=== PATIENT | male | born 1965 | race Caucasian/White ===

== ENCOUNTER → 2019-02-21 | Outpatient (CLI) | payer OTHER ==
--- NOTE | 2019-02-21 09:14 | XR ---
EXAMINATION TYPE: XR finger LT DATE OF EXAM: 02/21/2019 COMPARISON: NONE HISTORY: Smashing injury with pain. TECHNIQUE: 3 views of left fifth finger are acquired. FINDINGS: No acute fracture or dislocation is seen. There is over growing osteophyte along dorsal sandhya face at the base of the distal phalanx. There is slight cortical disruption along the ulnar aspect. . Mild soft tissue prominence at this level is seen. Joint spaces are maintained. IMPRESSION: Findings suggest healed fracture deformity at base of fifth distal phalanx ulnar dorsal a spect.
== END | disposition home or self-care (01) ==
LOC: RADXRMAIN 08:36
PROVIDERS: ATTEND Family Medicine
DX: M79.645 Pain in left finger(s) (principal)

== ENCOUNTER → 2019-09-13 | Outpatient (CLI) | payer OTHER ==
--- NOTE | 2019-09-13 09:28 | US ---
EXAMINATION TYPE: US duplex aorta DATE OF EXAM: 09/13/2019 COMPARISON: NONE CLINICAL HISTORY: 54-year-old male I72.3 ANEURYSM OF ILIAC ARTERY. TECHNIQUE: Multiple sonographic images of the abdominal aorta and iliac arteries are obtained. FINDINGS: EXAM MEASUREMENTS: Abdominal Aorta: Proximal: 2.5cm Mid: 2.0cm Distal: 1.8cm Bifurcation: Right: 2.3 x 2.4cm Left: 1.0cm IMPRESSION: 1. Borderline ectatic upper abdominal aorta 2.5 cm. Otherwise, no evidence for AAA. 2. 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 Left common iliac artery is normal caliber a t 1.0 cm.
== END | disposition home or self-care (01) ==
LOC: RADUSWWP 08:43
PROVIDERS: ATTEND Family Medicine
DX: I72.3 Aneurysm of iliac artery (principal)
CPT/HCPCS: 93979

== ENCOUNTER → 2021-01-21 | Outpatient (CLI) | payer OTHER ==
--- NOTE | 2021-01-21 08:41 | CT ---
EXAMINATION TYPE: CT soft tissue neck w con DATE OF EXAM: 01/21/2021 COMPARISON: None HISTORY: bilateral submandibular masses more on Lt than Rt CT DLP: 703.5 mGycm CONTRAST: CT scan of the neck is performed with IV Contrast, patient injected with 100 mL of Isovue 300. Contrast enhanced CT of the neck was performed from the skull base through the lung apices. AIRWAY: The supraglottic, glottic, and subglottic portions of the airway appear patent and free of mass. SALIVARY GLANDS: The submandibular and parotid glands are free of mass or inflammatory process. Ther e is a calcification adjacent to the left submandibular gland measuring 8 mm. Smaller 7 mm lymph node adjacent to the left submandibular gland is within normal limits. THYROID GLAND: No nodules or masses seen. LYMPH NODES: No adenopathy seen greater than 1cm. LUNG APICES: No nodule or mass is seen. OTHER: Vascular structures are patent. No significant degenerative change of the cervical spine. N o abscess seen. IMPRESSION: 1. No distinct mass identified at this time. 2.There is a calcification adjacent to the left submandibular gland measuring 8 mm. No evidence for i nflammatory process this time.
== END | disposition home or self-care (01) ==
LOC: RADCTMAIN 07:28
PROVIDERS: ATTEND Family Medicine
DX: R22.1 Localized swelling, mass and lump, neck (principal)
CPT/HCPCS: 70491; Q9967

== ENCOUNTER → 2021-09-09 | Outpatient (CLI) | payer OTHER ==
--- NOTE | 2021-09-09 10:53 | XR ---
EXAMINATION TYPE: XR foot limited RT DATE OF EXAM: 09/09/2021 CLINICAL HISTORY: Pain. TECHNIQUE: Frontal and lateral images of the right foot are obtained. COMPARISON: None FINDINGS: There is no acute fracture/dislocation evident in the right foot. The Watson's toe is pres ent. Small superior calcaneal spur. Small to moderate size inferior calcaneal spur. Joint spaces are maintained. Mild focal soft tissue swelling lateral to the fifth metatarsophalangeal joint. IMPRESSION: As above.
== END | disposition home or self-care (01) ==
LOC: RADXRMAIN 10:03
PROVIDERS: ATTEND Family Medicine
DX: M77.31 Calcaneal spur, right foot (principal)

== ENCOUNTER → 2024-06-08 | Outpatient (CLI) | payer OTHER ==
--- NOTE | 2024-07-10 13:56 | MR ---
Site ID synapse default Patient Juan Corona Jr ID [id number] 1965 Age/Gender: 59Y, M Order # N/A Procedure MR brain wo con Date 06/08/2024 6:30:32 PM EXAMINATION TYPE: MR brain wo con DATE OF EXAM: 06/15/2024 7:51 PM COMPARISON: CT brain 07/16/2016. CLINICAL INDICATION: Male, 59 year old with history of slurred speech. TECHNIQUE: Multi planar, multi sequence imaging was performed through the brain. No gadolinium was gi julio. FINDINGS: The marina-white junctions, ventricular system, and cisterns appear unremarkable. Small incidental cavu m septum pellucidum. Empty sella morphology. No FLAIR signal abnormalities. Midline structures show n o abnormality. Diffusion-weighted imaging shows no evidence of restricted diffusion. The susceptibili ty weighted images do not reveal any evidence for micro-hemorrhage. Age-appropriate cerebral volume. The bone marrow signal is within normal limits. The globes are unremarkable. Minimal mucosal thickeni ng of the ethmoid sinuses. Small right mastoid effusion. IMPRESSION: 1. No evidence of intracranial mass or acute/subacute infarct. 2. Small right mastoid effusion. Correlate clinically for possible mastoiditis.
== END | disposition home or self-care (01) ==
LOC: RADMRIMAIN 18:30
PROVIDERS: ATTEND Family Medicine
DX: R47.81 Slurred speech (principal); H74.8X1 Other specified disorders of right middle ear and mastoid
CPT/HCPCS: 70551

== ENCOUNTER → 2024-11-07 | Outpatient (CLI) | payer OTHER ==
--- NOTE | 2024-11-07 11:01 | XR ---
EXAMINATION TYPE: XR shoulder limited LT DATE OF EXAM: 11/07/2024 10:29 AM COMPARISON: None CLINICAL INDICATION: Male, 59 years old with history of M25.512 PAIN IN LEFT SHOULDER S89.90XA UNSPEC IFIED; PHH, pain TECHNIQUE: XR shoulder limited LT; examined in AP, internally rotated and scapular Y projections. FINDINGS: No evidence of acute osseous pathology, joint dislocation, or soft tissue swelling. The remaining po rtions of the visualized chest are unremarkable. Degeneration changes of the acromion, distal clavic le with osteophyte formation. There is osteophyte formation of the glenoid and humeral head. There is joint space narrowing of glenohumeral joint. Shortened left distal clavicle with gapping between the acromion and clavicle. Rotator cuff repair anchors. IMPRESSION: 1. No acute osseous pathology. 2. Mild shoulder osteoarthrosis. [facility], , 11/07/2024 10:58 AM
--- NOTE | 2024-11-07 11:02 | XR ---
EXAMINATION TYPE: XR knee complete LT DATE OF EXAM: 11/07/2024 10:29 AM COMPARISON: 12/12/2015 CLINICAL INDICATION: Male, 59 years old with history of M25.512 PAIN IN LEFT SHOULDER S89.90XA UNSPEC IFIED; PHH, pain TECHNIQUE: XR knee complete LT 3 views submitted. FINDINGS: No evidence of any acute osseous pathology, soft tissue swelling, or joint effusion is no velasquez. Tricompartmental osteophyte formation involving the femoral condyles, tibial plateau and patella . Mild joint space narrowing. A fabella is present. IMPRESSION: 1. No acute osseous pathology. 2. Mild to moderate tricompartmental osteoarthritic changes. [facility], , 11/07/2024 11:00 AM
== END | disposition home or self-care (01) ==
LOC: RADXRMAIN 10:04
PROVIDERS: ATTEND Nurse Practitioner Family
DX: S89.90XA Unspecified injury of unspecified lower leg, initial encounter (principal); M19.012 Primary osteoarthritis, left shoulder; M17.12 Unilateral primary osteoarthritis, left knee

== ENCOUNTER → 2025-01-28 | Outpatient (CLI) | payer OTHER ==
--- NOTE | 2025-01-28 20:04 | MR ---
EXAMINATION TYPE: MR brain wo/w con DATE OF EXAM: 01/28/2025 COMPARISON: MRI brain June 08, 2024 HISTORY: Slurred speech, Dysphagia, Weakness both sides, Memory issues TECHNIQUE: Multiplanar, multisequence images of the brain and brainstem is performed without and with IV contras t, utilizing 6.5 mL intravenous Gadobutrol . FINDINGS: Diffusion weighted images demonstrate no evidence of a recent infarct or other diffusion ab normality. There is mild ventricular and sulcal prominence redemonstrated. No suspicious new white Matter changes. Midline structures redemonstrate at least partially empty sella morphology. The craniocervical junct ion remains within normal limits. Post contrast images demonstrate no abnormal enhancement. The dura l venous sinuses appear patent. Persistent mild mucosal thickening involving bilateral ethmoid sinuse s. Persistent prominent CSF surrounding the optic nerves bilaterally. IMPRESSION: No MRI evidence for recent infarct. No suspicious enhancement identified. [facility], , 01/28/2025 8:02 PM
== END | disposition home or self-care (01) ==
LOC: RADMRIMAIN 17:58
PROVIDERS: ATTEND Psychiatry & Neurology Neurology
DX: R47.81 Slurred speech (principal); R13.10 Dysphagia, unspecified
CPT/HCPCS: 70553; A9585

== ENCOUNTER → 2025-01-31 | Outpatient (CLI) | payer OTHER | END | disposition home or self-care (01) | LOC: LABWHC1 12:40 | PROVIDERS: ATTEND Psychiatry & Neurology Neurology | DX: R13.10 Dysphagia, unspecified (principal) | CPT/HCPCS: 36415 ==

== ENCOUNTER → 2025-04-29 | Outpatient (CLI) | payer OTHER ==
[2025-04-29 15:29] LABS: T4, Free (Free Thyroxine) 0.98 ng/dL (0.80-1.80)
== END | disposition home or self-care (01) ==
LOC: LABWHC1 12:42
PROVIDERS: ATTEND Psychiatry & Neurology Neurology
DX: E23.6 Other disorders of pituitary gland (principal); R47.81 Slurred speech; R13.10 Dysphagia, unspecified
CPT/HCPCS: 36415; 84439; 84443